=== PATIENT | male | born 2000 | race Two or more races ===

== ENCOUNTER 2022-11-15 01:30 | Emergency (ER) | payer BC ==
[2022-11-15] MEDS ORDERED: LORazepam 2 MG/ML SYR.(CARPUJECT) ONE (02:08)
[2022-11-15] MEDS ORDERED: Ketorolac Tromethamine 30 MG/ML VIAL ONE (02:08)
[2022-11-15 02:15] LABS: Hemoglobin 14.7 g/dL (14.0-18.0); Mean Corpuscular HGB CONC 32.5 g/dL (32.0-36.0); Mean Corpuscular Hemoglobin 27.3 pg (25.0-35.0); Mean Corpuscular Volume 84.1 fl (78.0-98.0); Mean Platelet Volume 6.7 fL (7.4-10.4); Platelet Count 314 10x3/uL (130-400); RBC Distribution Width 12.2 % (11.5-14.5); Red Blood Cell (RBC) Count 5.37 mill/uL (4.00-5.20)
[2022-11-15 02:33] LABS: Eosinophils 3 % (0-10); Lymphocytes 56 % (28-48); MDiff Complete? YES; Monocytes 4 % (0-4); Neutrophil 37 % (31-61); Platelet Morphology Comment Appears Adequate; RBC Morphology Normal
[2022-11-15 02:36] LABS: ALT (SGPT) 28 U/L (8-55); AST (SGOT) 20 U/L (5-34); Albumin 4.5 g/dL (3.5-5.0); Alkaline Phosphatase 107 U/L (50-130); Anion Gap 13 mmol/L (10-20); BUN (Urea Nitrogen) 11 mg/dL (8.9-20.6); Bilirubin, Total 0.3 mg/dL (0.2-1.2); CK (CPK) 205 U/L (30-200); Calc. Creatinine Clearance 0 mL/min (70-130); Calcium 10.2 mg/dL (7.8-10.44); Carbon Dioxide 26 mmol/L (22-29); Chloride 107 mmol/L (98-107); Estimated GFR 127; Globulin 3.1 g/dL (2.4-3.5); Glucose 104 mg/dL (70-105); Potassium 3.9 mmol/L (3.5-5.1); Protein, Total 7.6 g/dL (6.0-8.3); Sodium 142 mmol/L (136-145)
== END 2022-11-15 03:02 | disposition home or self-care (01) ==
LOC: ERS 01:30
DX: R07.89 Other chest pain (principal)
CPT/HCPCS: 36415; 71045; 80053; 82550; 84484; 85025; 85379; 93005; 96374; 96375; J1885; J2060

== ENCOUNTER 2023-06-09 21:12 | Emergency (ER) | payer BC ==
[2023-06-09] MEDS ORDERED: Ibuprofen 200 MG TAB ONE (22:15)
== END 2023-06-09 22:30 | disposition home or self-care (01) ==
LOC: ERS 21:12
DX: S89.91XA Unspecified injury of right lower leg, initial encounter (principal); Y93.39 Activity, other involving climbing, rappelling and jumping off